=== PATIENT | female | born 1970 | race Caucasian/White ===

== ENCOUNTER 2017-02-03 19:18 | Emergency (ER) | payer OTHER ==
[~2017-02-03] VITALS: Ht 149.9 cm; Wt 77.1 kg
[2017-02-03] MEDS ORDERED: VOLTAREN50 MG PO (19:28)
== END 2017-02-03 20:45 | disposition home or self-care (01) ==
LOC: SED 19:18
DX: H10.9 Unspecified conjunctivitis (principal); J32.0 Chronic maxillary sinusitis; J30.9 Allergic rhinitis, unspecified; Z90.49 Acquired absence of other specified parts of digestive tract; Z90.710 Acquired absence of both cervix and uterus; Z98.890 Other specified postprocedural states; F17.210 Nicotine dependence, cigarettes, uncomplicated; Z88.0 Allergy status to penicillin
CPT/HCPCS: 99283